=== PATIENT | male | born 1955 | race Caucasian/White ===

== ENCOUNTER 2018-09-29 06:41 | Emergency (ER) | payer OTHER ==
[2018-09-29 06:57] VITALS: PULSE 68; TEMP 98.2; BMI 25.0
[2018-09-29 07:49] VITALS: BP 183/103
--- NOTE | 2018-09-29 07:51 | PDOC ---
History of Present Illness - General Chief Complaint: Urinary Catheter Problem Stated Complaint: SAUL LEAKING Time Seen by Provider: 09/29/18 06:49 - History of Present Illness Initial Comments: 09/29/18 07:52 Chief complaint: Leakage around the Saul catheter History of present illness: Patient had TURP last Sunday, catheter was removed Sunday, couldn't urinate, was replaced the same day and instructed to follow-up tomorrow. Catheter was functioning well until yesterday, when the patient noted that he had to bear down to apply pressure in order for urine to flow into his bag. There was also leakage around the catheter. No lower abdominal plain or bladder distention. Review of systems: No fever/chills, nausea, vomiting, diarrhea, abdominal pain, chest pain, shortness of breath. Remainder systems reviewed and negative Past medical history: Prostate cancer, prostatic hypertrophy, status post TURP, high blood pressure. Social/family history reviewed and noncontributory Physical exam: Alert and oriented well-developed well-nourished no acute distress cheerful and cooperative Afebrile, vital signs normal except for moderately elevated blood pressure in the 180/105 range. The patient states that since his surgery on Sunday his blood pressure has been in this range, otherwise it is usually well-controlled on his medication. He has continued to take his medication as directed. PERRLA, fundi benign, ENT clear Neck supple without bruit mass or nodes Chest clear with full breath sounds bilaterally. No wheezes rales or rhonchi CV regular without murmur rub or gallop pulses full and symmetric no JVD or edema no bruits Abdomen nondistended. Bowel sounds normal. Soft without mass tenderness organomegaly. Bladder is not distended to percussion. Extremities no CCE Neurological intact Skin clear, no rash, adequate turgor and wet mucous membranes Saul catheter is in place, no irritation or lesions urethral, no leakage noted. Clear urine is present in the collection bag. However, no urine drains into the bag with application of pressure over the bladder. Impression: Probable obstructed Saul with urinary retention and leakage around the catheter Plan: Irrigation of the catheter, further manipulation if not effective. Past History - Past Medical History Allergies/Adverse Reactions: Allergies Allergy/AdvReac Type Severity Reaction Status Date / Time No Known Allergies Allergy Unverified 09/29/18 06:42 Home Medications: Ambulatory Orders Atenolol [Tenormin] 50 mg PO DAILY 09/29/18 Atorvastatin Ca [Lipitor] 40 mg PO HS 09/29/18 Ciprofloxacin HCl [Cipro] 500 mg PO DAILY 09/29/18 Dutasteride 0.5 mg PO DAILY 09/29/18 Losartan Potassium 100 mg PO DAILY 09/29/18 Omeprazole 20 mg PO DAILY 09/29/18 Tolterodine Tartrate LA [Detrol LA -] 2 mg PO DAILY 09/29/18 Cancer: Yes (PROSTATE) COPD: No Disorders: Yes (BPH) HTN: Yes Hypercholesterolemia: Yes - Suicide/Smoking/Psychosocial Hx Smoking History: Never smoked *Physical Exam - Vital Signs Last Vital Signs Temp Pulse Resp BP Pulse Ox 98.2 F 68 16 184/108 H 100 09/29/18 06:50 09/29/18 06:50 09/29/18 06:50 09/29/18 06:50 09/29/18 06:50 Moderate Sedation - Procedure Monitoring Vital Signs: Procedure Monitoring Vital Signs Temperature 98.2 F 09/29/18 06:50 Pulse Rate 68 09/29/18 06:50 Respiratory Rate 16 09/29/18 06:50 Blood Pressure 184/108 H 09/29/18 06:50 O2 Sat by Pulse Oximetry (%) 100 09/29/18 06:50 Medical Decision Making - Medical Decision Making 09/29/18 07:58 Procedure note: Irrigation of Saul catheter With sterile technique, irrigation of the Saul was attempted. There was significant resistance to attempted irrigation, and little outflow flu fluid. The balloon was deflated, and catheter irrigated freely with free drainage. However each time the catheter was repositioned and the balloon inflated, the obstruction seemed to recur. After discussion with the patient, since the catheter was scheduled to be removed tomorrow, it was decided to remove the catheter, since it was not functioning well, allow the patient to attempt to urinate on his own. He is comfortable at discharge, fully ambulatory and in no pain or other distress with his , to return to the ER if there is further urinary retention, or contact his urologist. His blood pressure was rechecked, which remains at the elevated level. He states that it has been elevated since his surgery on Sunday, and he has been taking his medications. He agrees to have his blood pressure rechecked either later today or tomorrow and to follow closely, to work with his primary physician if it does not return to normal levels. *DC/Admit/Observation/Transfer Diagnosis at time of Disposition: Urinary retention, Elevated blood pressure reading - Discharge Dispostion Disposition: HOME Condition at time of disposition: Improved Decision to Admit order: No - Referrals Referrals: Ryan Patton [Primary Care Provider] - - Patient Instructions Printed Discharge Instructions: DI for Urinary Retention in Men Additional Instructions: Return to ER if unable to urinate, or see your urologist of possible. The blood pressure is moderately high, and should be closely followed. Practice some relaxation techniques and have the blood pressure checked again no later than 24 hours. Take blood pressure medication as directed. - Post Discharge Activity
== END 2018-09-29 07:54 | disposition home or self-care (01) ==
LOC: FER 06:41
DX: R33.9 Retention of urine, unspecified (principal); Z46.6 Encounter for fitting and adjustment of urinary device; R03.0 Elevated blood-pressure reading, without diagnosis of hypertension
CPT/HCPCS: 99282-25